=== PATIENT | female | born 1985 | race Two or more races ===

== ENCOUNTER 2024-06-02 14:49 | Outpatient (CLI) | payer OTHER | END 2024-06-02 15:06 | disposition home or self-care (01) | LOC: MRI 14:49 | PROVIDERS: ATTEND Orthopaedic Surgery | DX: M76.61 Achilles tendinitis, right leg (principal); M25.571 Pain in right ankle and joints of right foot | CPT/HCPCS: 73721 ==

== ENCOUNTER 2024-06-28 07:27 | Outpatient (CLI) | payer OTHER ==
[~2024-06-28] VITALS: Ht 165.1 cm; Wt 81.6 kg
[2024-06-28 08:39] LABS: EOS # 0.08 (0.04-0.54); EOS % 1.2 % (0.7-7.0); HEMATOCRIT 38.7 % (34.1-44.9); HEMOGLOBIN 12.3 g/dL (11.2-15.7); LYMPH # 2.52 (1.18-3.74); LYMPH % 37.3 % (19.3-53.1); MONO # 0.42 (0.24-0.82); MONO % 6.2 % (4.7-12.5); NEUT # 3.66 (1.56-6.13); NEUT % 54.2 % (34.0-71.1); PLATELET COUNT 321 K/uL (163-369); RED BLOOD COUNT 4.55 M/uL (3.93-5.22); RED CELL DISTRIBUTION WIDTH 13.4 % (11.6-14.4)
[2024-06-28 09:02] LABS: INR 1.03; PARTIAL THROMBOPLASTIN TIME 28.9 SECONDS (22.0-34.0); PROTHROMBIN TIME 11.2 SECONDS (9.0-11.5)
[2024-06-28 09:10] VITALS: BP 121/86
[2024-06-28 09:21] LABS: COL EPI 88 SECONDS (82-175)
[2024-06-28 09:46] LABS: ALBUMIN 3.7 gm/dL (3.4-5.0); BILIRUBIN TOTAL 0.42 mg/dL (0.3-1.2); CREATININE SERUM 0.53 mg/dL (0.55-1.02); GFR 127.12; GLOBULINA 3.9 G/DL (2.4-3.5); POTASSIUM 3.7 mEq/L (3.5-5.1); TOTAL PROTEIN 7.6 gm/dL (6.4-8.2)
[2024-06-28 10:54] LABS: URINE APPEARANCE Clear; URINE BILIRRUBIN Negative (NEGATIVE); URINE BLOOD Negative; URINE COLOR Yellow; URINE KETONE Trace (NEGATIVE); URINE LEUKOCYTE Negative; URINE NITRATE Negative; URINE PROTEIN Negative (NEGATIVE); URINE UROBILINOGEN 0.2 E.U./dl
[2024-06-28 10:59] LABS: URINE BACTERIA 263.1 uL (0.0-1933); URINE RBC 35.2 uL (0.0-20.8); URINE WBC 10.4 uL (0.0-23.2)
[2024-06-28 11:09] LABS: URINE CAST 0.29 uL (0.0-1.40); URINE GLUCOSE >=1000 MG/DL (NEGATIVE)
== END 2024-06-28 23:00 | disposition home or self-care (01) ==
LOC: LAB 07:27 → RAD 07:27
PROVIDERS: ATTEND Orthopaedic Surgery
DX: D64.9 Anemia, unspecified (principal); E88.89 Other specified metabolic disorders; D68.8 Other specified coagulation defects; N39.0 Urinary tract infection, site not specified; Z22.322 Carrier or suspected carrier of Methicillin resistant Staphylococcus aureus; E11.9 Type 2 diabetes mellitus without complications; Z20.822 Contact with and (suspected) exposure to COVID-19

== ENCOUNTER 2024-07-12 05:19 | Day surgery (SDC) | payer OTHER ==
[~2024-07-12 05:19] MED LIST: METFORMIN HCL500 M3 PO
[2024-07-12] MEDS ORDERED: CEFAZOLIN SODIUM 1,000 MG VIAL ONE (07:17)
[2024-07-12] MEDS ORDERED: BUPIVACAINE HCL/Mpf 0.5% 10ML VIAL ONE (07:27)
[2024-07-12] MEDS ORDERED: LIDOCAINE HCL 1%/EPINEPHRINE 20ML VIAL IJ ONE (07:27)
== END 2024-07-12 15:40 | disposition home or self-care (01) ==
LOC: CIR.AMB 05:19
PROVIDERS: ATTEND Orthopaedic Surgery
DX: M89.8X7 Other specified disorders of bone, ankle and foot (principal); M66.871 Spontaneous rupture of other tendons, right ankle and foot; Z88.0 Allergy status to penicillin; Z88.6 Allergy status to analgesic agent; Z91.018 Allergy to other foods; Z91.040 Latex allergy status